=== PATIENT | male | born 1985 | race Two or more races ===

== ENCOUNTER 2019-10-16 12:42 | Emergency (ER) | payer MEDICAID, OTHER ==
[~2019-10-16] VITALS: Ht 167.6 cm; Wt 83.9 kg
[2019-10-16 12:51] VITALS: BP 139/85
[2019-10-16] MEDS ORDERED: IBUPROFEN 800 MG TAB PO ONE (13:15)
== END 2019-10-16 13:21 | disposition home or self-care (01) ==
LOC: ER 12:42
DX: H92.02 Otalgia, left ear (principal); F17.210 Nicotine dependence, cigarettes, uncomplicated